=== PATIENT | male | born 1990 | race Caucasian/White ===

== ENCOUNTER 2018-11-06 11:17 | Emergency (ER) | payer MEDICAID ==
[~2018-11-06] VITALS: Ht 185.4 cm; Wt 68.0 kg
[2018-11-06] MEDS ORDERED: DiphenhydrAMINE HCL 50 MG/ML VIAL IM ONE (12:30)
[2018-11-06] MEDS ORDERED: DIAZEPAM 5 MG/ML 2 ML SYRINGE IM ONE ×2 (12:45→14:30)
[2018-11-06 14:30] VITALS: BP 103/61
== END 2018-11-06 15:05 | disposition home or self-care (01) ==
LOC: EMS 11:19
DX: S92.324A Nondisplaced fracture of second metatarsal bone, right foot, initial encounter for closed fracture (principal); F17.210 Nicotine dependence, cigarettes, uncomplicated; F11.90 Opioid use, unspecified, uncomplicated; F19.10 Other psychoactive substance abuse, uncomplicated; X58.XXXA Exposure to other specified factors, initial encounter; Y93.89 Activity, other specified; Y92.89 Other specified places as the place of occurrence of the external cause; Y99.8 Other external cause status
CPT/HCPCS: 73630; 93971; 96372; 99284; J1200; J1885